=== PATIENT | female | born 1960 | race Caucasian/White ===

== ENCOUNTER 2020-05-23 06:57 | Outpatient (CLI) | payer BC ==
[2020-05-23 13:54] LABS: Anion Gap 14 mmol/L (10-20); BUN (Urea Nitrogen) 16 mg/dL (9.8-20.1); Calc. Creatinine Clearance 0 mL/min (70-130); Calcium 9.5 mg/dL (7.8-10.44); Carbon Dioxide 28 mmol/L (23-31); Chloride 104 mmol/L (98-107); Estimated GFR-MDRD 79; Glucose 165 mg/dL (80-115); Potassium 3.6 mmol/L (3.5-5.1); Sodium 142 mmol/L (136-145)
[2020-05-23 14:28] LABS: #Eosinphils 0.1 10x3/uL (0.0-0.5); #Monocytes 0.5 10x3/uL (0.0-1.1); #Neutrophils 3.8 10x3/uL (1.5-8.4); %Basophils 0.5 % (0.0-2.0); %Eosinophils 1.7 % (0.0-6.0); %Lymphocytes 30.3 % (18.0-47.0); %Neutrophils 58.9 % (40.0-75.0); Hemoglobin 13.3 g/dL (12.0-16.0); Mean Corpuscular Hemoglobin 29.2 PG (27.0-33.0); Mean Corpuscular Volume 88.6 fl (80.0-100.0); Mean Platelet Volume 9.3 fl (7.4-10.4); Platelet Count 231 10x3/uL (130-400); RBC Distribution Width 12.7 % (11.5-14.5); Red Blood Cell (RBC) Count 4.55 10x6/uL (3.90-5.20); White Blood Cell (WBC) Count 6.4 10x3/uL (4.5-11.0)
[2020-05-24 03:03] LABS: SARS-CoV-2 MS2 Positive; SARS-CoV-2 N Gene Negative; SARS-CoV-2 S Gene Negative; SARS-CoV-2 by NAA Not Detected (NotDetected); SARS-CoV-2 orf1ab Negative
--- NOTE | 2020-05-25 07:03 | EKG ---
Test Reason : Blood Pressure : / mmHG Vent. Rate : 059 BPM Atrial Rate : 059 BPM P-R Int : 146 ms QRS Dur : 092 ms QT Int : 432 ms P-R-T Axes : 044 046 060 degrees QTc Int : 427 ms Sinus bradycardia Otherwise normal ECG No previous ECGs available Confirmed by DR. Kelly PUCKETT ([id number]) on 05/25/2020 7:02:54 AM Referred By: Tristen CHAIREZ Confirmed By:DR. Kelly PUCKETT
== END 2020-05-23 06:58 | disposition home or self-care (01) ==
LOC: LABBT 06:57
PROVIDERS: ATTEND Orthopaedic Surgery
DX: Z01.818 Encounter for other preprocedural examination (principal); Z20.828 Contact with and (suspected) exposure to other viral communicable diseases; S83.206A Unspecified tear of unspecified meniscus, current injury, right knee, initial encounter
CPT/HCPCS: 80048; 85025; 87635; 93005; 93010; U0003

== ENCOUNTER 2020-05-26 05:48 | Day surgery (SDC) | payer BC ==
[2020-05-24 10:48] VITALS: BMI 29.8
[2020-05-26] MEDS ORDERED: PROPOFOL 20 ML ONE (06:20)
[2020-05-26] MEDS ORDERED: Dexmedetomidine 200 MCG/2 ML VIAL ONE (07:07)
[2020-05-26] MEDS ORDERED: Fentanyl 100 MCG/2 ML VIAL ONE ×2 (07:07→08:41)
--- NOTE | 2020-05-26 08:50 | OP ---
DATE OF PROCEDURE: 05/26/2020 PREOPERATIVE DIAGNOSIS: Right knee degenerative medial meniscus tear. POSTOPERATIVE DIAGNOSES: 1. Right knee degenerative medial meniscus tear. 2. 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 BUILDING CARPENTER: None. ESTIMATED BLOOD LOSS: Minimal. COMPLICATIONS: None. ANESTHESIA: General anesthetic as well as local block. DISPOSITION: Recovery room in stable condition. INDICATIONS FOR PROCEDURE: Ms. Gruber is an active 59 yo, female, who has failed nonoperative treatment. At this time, she wished to have surgery on the knee. DESCRIPTION OF PROCEDURE: After all appropriate consent forms were explained and signed, she was taken to the operating room, and at that time, she was given a general anesthetic. Once the level of anesthesia was appropriate, tourniquet was placed on the right thigh and the leg was placed in the arthroscopic leg tamayo. The limb was then prepped and draped in standard surgical fashion. Limb was exsanguinated. Tourniquet was taken to 300 mmHg. Inferolateral portal was then established and the scope was placed into the knee joint. A needle localization technique was then used to make our medial working portal. Diagnostic arthroscopy commenced in the notch. The ACL and PCL were probed, found to be intact. Medial compartment showed a significant amount of chondral wear on the medial femoral condyle, the tibial plateau including some areas of grade 4 changes. There were no large loose unstable chondral flaps. A degenerative posterior horn medial meniscus tear was noted and a partial meniscectomy back to a stable base was performed using meniscal biter and shaver. The lateral compartment was found to be overall in good condition. The patellofemoral joint showed the patella to be in good condition. The trochlea also was in good condition at this time. The gutters were swept through. No loose bodies were noted. There were some small osteophytes medially. At this time, scope was removed and knee was drained. Portals were closed with simple nylon stitch. Bulky sterile dressing was applied. Tourniquet was let down and toes pinked up nicely. The patient was awakened and taken to recovery room in stable condition. All counts were correct at the end of the case and she did receive preoperative IV antibiotics. Job ID: [id number] [facility]
[2020-05-26] MEDS ORDERED: Dexamethasone 20 MG/5 ML VIAL ONE (10:46)
[2020-05-26] MEDS ORDERED: Lidocaine 2% w/Epinephrine 1:200K 20 ML VIAL ONE (10:46)
[2020-05-26] MEDS ORDERED: PROPOFOL 200 MG/20 ML VIAL ONE (10:46)
[2020-05-26] MEDS ORDERED: Lidocaine 1% PF 5 ML VIAL ONE (10:46)
[2020-05-26] MEDS ORDERED: Ondansetron PF 4 MG/2 ML Vial ONE (10:46)
[2020-05-26] MEDS ORDERED: Bupivacaine PF 0.5% 30 ML VIAL ONE (10:46)
[2020-05-26] MEDS ORDERED: ePHEDrine 50 MG/ML VIAL ONE (10:46)
[2020-05-26] MEDS ORDERED: Ketorolac Tromethamine 30 MG/ML VIAL ONE (10:46)
== END 2020-05-26 10:45 | disposition home or self-care (01) ==
LOC: SDC 05:48
PROVIDERS: ATTEND Orthopaedic Surgery
PROC: 0SBC4ZZ Excision of Right Knee Joint, Percutaneous Endoscopic Approach (ICD-10-PCS; principal; 2020-05-26)
DX: M23.321 Other meniscus derangements, posterior horn of medial meniscus, right knee (principal); M94.261 Chondromalacia, right knee; Z79.899 Other long term (current) drug therapy
CPT/HCPCS: J0690; J1100; J1885; J2405; J2704; J3010; J3490; S0020

== ENCOUNTER 2020-12-27 15:46 | Outpatient (CLI) | payer BC ==
[2020-12-27 16:34] LABS: Bilirubin Neg (Negative); Blood, Urine Negative (Negative); Clarity Clear (Clear); Glucose, Urine (Dipstick) Normal (Negative); Ketone, Urine Negative (Negative); Leukocyte Negative (Negative); Nitrite Negative (Negative); Protein, Urine (Dipstick) Negative (Neg-Trace); Urobilinogen Normal mg/dL (Less than 2); pH, Urine 6.5 (5.0-9.0)
[2020-12-27 16:41] LABS: #Eosinphils 0.1 10x3/uL (0.0-0.5); #Monocytes 0.4 10x3/uL (0.0-1.1); %Basophils 0.5 % (0.0-2.0); %Eosinophils 1.5 % (0.0-6.0); %Lymphocytes 34.7 % (18.0-47.0); %Monocytes 7.8 % (0.0-10.0); Hemoglobin 12.7 g/dL (12.0-15.5); Mean Corpuscular HGB CONC 33.7 g/dL (32.0-36.0); Mean Corpuscular Hemoglobin 28.7 pg (27.0-33.0); Mean Corpuscular Volume 85.3 fl (81.6-98.3); Mean Platelet Volume 9.7 fl (7.4-10.4); Platelet Count 223 10x3/uL (150-450); RBC Distribution Width 12.8 % (11.5-14.5); Red Blood Cell (RBC) Count 4.42 10x6/uL (3.90-5.03); White Blood Cell (WBC) Count 5.5 10x3/uL (3.5-10.5)
[2020-12-27 16:47] LABS: Bacteria/HPF Rare-Few HPF (None Seen); RBC/HPF 0-3 HPF (0-3); Squamous Epithelial 0-3 HPF (0-3); Transitional Epithelial 0-3 HPF (None Seen); WBC/HPF 0-3 HPF (0-3)
[2020-12-27 16:48] LABS: INR-International Normal Ratio 0.9; Prothrombin Time 10.4 sec (9.5-12.1)
[2020-12-27 16:52] LABS: Anion Gap 14 mmol/L (10-20); BUN (Urea Nitrogen) 15 mg/dL (9.8-20.1); Calc. Creatinine Clearance 0 mL/min (70-130); Calcium 10.3 mg/dL (7.8-10.44); Carbon Dioxide 29 mmol/L (23-31); Chloride 103 mmol/L (98-107); Glucose 195 mg/dL (80-115); Potassium 4.5 mmol/L (3.5-5.1); Sodium 141 mmol/L (136-145)
== END 2020-12-27 15:47 | disposition home or self-care (01) ==
LOC: LABBT 15:46
PROVIDERS: ATTEND Orthopaedic Surgery
DX: Z01.818 Encounter for other preprocedural examination (principal); M17.11 Unilateral primary osteoarthritis, right knee
CPT/HCPCS: 80048; 81001; 85025; 85610; 86850; 86900; 86901; 87081; 93005; 93010